=== PATIENT | male | born 1955 | race Caucasian/White ===

== ENCOUNTER 2020-09-17 16:32 | Outpatient (REF) | payer MEDICARE, SELFPAY ==
[2020-09-24 13:22] LABS: COVID-19 RT-PCR Result Not detected ((See Note))
== END 2020-09-17 16:33 | disposition home or self-care (01) ==
LOC: LBN 16:32
PROVIDERS: Visit Provider Nurse Practitioner Adult Health
DX: Z20.822 Contact with and (suspected) exposure to COVID-19 (principal)
CPT/HCPCS: U0003

== ENCOUNTER 2020-09-20 13:53 | Outpatient (REF) | payer SELFPAY ==
[2020-09-22 14:07] LABS: COVID-19 RT-PCR Result Not Detected ((See Note))
== END 2020-09-20 13:54 | disposition home or self-care (01) ==
LOC: LBN 13:53
PROVIDERS: Visit Provider Nurse Practitioner Adult Health
DX: Z20.822 Contact with and (suspected) exposure to COVID-19 (principal)
CPT/HCPCS: U0003

== ENCOUNTER 2020-09-21 04:01 | Outpatient (REF) | payer SELFPAY ==
[2020-09-21 04:25] LABS: Abs Immature Grans 0.07 10^3/uL (0.0-0.06); Absolute Basophil Count 0.07 10^3/uL (0.0-0.2); Absolute Eosinophil Count 0.67 10^3/uL (0.0-0.7); Absolute Lymphocyte Count 1.58 10^3/uL (1.2-3.4); Absolute Monocyte Count 0.83 10^3/uL (0.1-0.8); Absolute Neutrophil Count 7.05 10^3/uL (1.2-6.7); Basophils % 0.7; Eosinophils % 6.5; HGB 8.2 g/dL (13.5-17.5); Immature Grans % 0.7; Lymphocytes % 15.4; MCH 27.2 pg (27.0-33.0); MCHC 30.4 % (32.0-36.0); MCV 89.4 fL (80-95); MPV 10.4 fL (8.0-11.0); Monocytes % 8.1; Neutrophils % 68.6; Nucleated RBC 0 %; Platelet Count 391 10^3/uL (130-400); RBC 3.02 10^6/uL (4.36-5.78); RDW-SD 54.5 fL; WBC 10.27 10^3/uL (4.4-10.8)
[2020-09-21 04:27] LABS: Anion Gap 6.7 mmol/L (3-11); BUN 42 mg/dL (7-18); CO2 27.3 mmol/L (21.0-32.0); CREATININE 2.1 mg/dL (0.70-1.30); Calcium 8.3 mg/dL (8.5-10.1); Chloride 106 mmol/L (98-107); Estimated GFR 31.76 (mL/min/1.73m2); Glucose 134 mg/dL (74-106); Sodium 140 mmol/L (136-145)
[2020-09-21 05:05] LABS: Anisocytosis 1+; Polychromasia Present
[2020-09-21 05:08] LABS: Poikilocytes 2+
[2020-09-23 13:16] LABS: COVID-19 RT-PCR UVMMC Result Negative (Negative)
== END 2020-09-21 04:02 | disposition home or self-care (01) ==
LOC: LBN 04:01
PROVIDERS: Visit Provider Nurse Practitioner Adult Health
DX: N18.9 Chronic kidney disease, unspecified (principal); D63.1 Anemia in chronic kidney disease; Z20.822 Contact with and (suspected) exposure to COVID-19
CPT/HCPCS: 80048; U0003; 85025

== ENCOUNTER 2020-09-24 19:13 | Outpatient (REF) | payer SELFPAY ==
[2020-09-24 18:31] LABS: Abs Immature Grans 0.07 10^3/uL (0.0-0.06); Absolute Eosinophil Count 1.08 10^3/uL (0.0-0.7); Absolute Lymphocyte Count 1.62 10^3/uL (1.2-3.4); Absolute Monocyte Count 0.81 10^3/uL (0.1-0.8); Basophils % 1.1; Eosinophils % 8.8; HCT 28.1 % (40.0-50.0); HGB 8.4 g/dL (13.5-17.5); Immature Grans % 0.6; Lymphocytes % 13.2; MCH 26.8 pg (27.0-33.0); MCHC 29.9 % (32.0-36.0); MCV 89.8 fL (80-95); MPV 10.6 fL (8.0-11.0); Monocytes % 6.6; Neutrophils % 69.7; Nucleated RBC 0 %; Platelet Count 442 10^3/uL (130-400); RBC 3.13 10^6/uL (4.36-5.78); RDW 16.9 % (11.8-14.1); RDW-SD 54.7 fL; WBC 12.24 10^3/uL (4.4-10.8)
[2020-09-24 18:34] LABS: Absolute Basophil Count 0.13 10^3/uL (0.0-0.2); Absolute Neutrophil Count 8.53 10^3/uL (1.2-6.7)
[2020-09-24 19:27] LABS: ALT 29 U/L (16-63); AST 28 U/L (15-37); Albumin 2.1 g/dL (3.4-5.0); Alkaline Phosphatase 168 U/L (46-116); Anion Gap 8.4 mmol/L (3-11); BUN 43 mg/dL (7-18); Bilirubin, Total 0.7 mg/dL (0.2-1.0); C-Reactive Protein 2.93 mg/dL (0.0-0.3); CO2 24.6 mmol/L (21.0-32.0); CREATININE 2.4 mg/dL (0.70-1.30); Calcium 8.6 mg/dL (8.5-10.1); Chloride 104 mmol/L (98-107); Estimated GFR 27.22 (mL/min/1.73m2); Glucose 128 mg/dL (74-106); Potassium 5.3 mmol/L (3.5-5.1); Sodium 137 mmol/L (136-145); Total Protein 6.4 g/dL (6.4-8.2)
== END 2020-09-24 19:14 | disposition home or self-care (01) ==
LOC: LBN 19:13
PROVIDERS: Visit Provider Nurse Practitioner Adult Health
DX: E11.9 Type 2 diabetes mellitus without complications (principal); N18.9 Chronic kidney disease, unspecified; I50.22 Chronic systolic (congestive) heart failure; M86.061 Acute hematogenous osteomyelitis, right tibia and fibula
CPT/HCPCS: 80053; 85025; 86140